=== PATIENT | female | born 1950 | race Caucasian/White ===

== ENCOUNTER → 2017-09-10 | Outpatient (CLI) | payer MEDICARE, OTHER | LOC: MC.RAD 08:33 | DX: Z12.31 Encounter for screening mammogram for malignant neoplasm of breast (principal) ==

== ENCOUNTER 2018-08-05 10:30 | Outpatient (RCR) | payer MEDICARE | END 2018-08-23 | disposition home or self-care (01) | LOC: MKS.ESL.PT | DX: M77.51 Other enthesopathy of right foot and ankle (principal) | CPT/HCPCS: G8978-GP; G8979-GP ==

== ENCOUNTER 2019-08-03 18:35 | Emergency (ER) | payer MEDICARE ==
[~2019-08-03] VITALS: Ht 175.3 cm; Wt 60.5 kg
[2019-08-03 18:36] VITALS: TEMP 97.5
[2019-08-03] MEDS ORDERED: NORCO 325 MG-51 TAB PO (20:14)
[2019-08-03] MEDS ORDERED: ZOFRAN ODT4 MG PO (20:23)
[2019-08-03 20:37] VITALS: BP 170/101; PULSE 76
== END 2019-08-03 20:56 | disposition home or self-care (01) ==
LOC: COL.ER 18:35
DX: S72.402A Unspecified fracture of lower end of left femur, initial encounter for closed fracture (principal); X50.1XXA Overexertion from prolonged static or awkward postures, initial encounter
CPT/HCPCS: J3010; L1846

== ENCOUNTER 2019-08-25 12:45 | Outpatient (RCR) | payer MEDICARE ==
[~2019-08-25 12:45] MED LIST: NORCO 325 MG-51 TAB PO; ZOFRAN ODT4 MG PO
[2019-09-03] MEDS ORDERED: AMOXICILLIN 8751 TAB PO (09:31)
[2019-09-03] MEDS ORDERED: PERCOCET 325 MG1 TA2 PO (09:31)
[2019-09-03] MEDS ORDERED: STOOL SOFTENER100 M2 PO (09:32)
[2019-09-03] MEDS ORDERED: MOTRIN 600600 MG/TAB PO (09:32)
== END 2019-11-14 | disposition home or self-care (01) ==
LOC: MKS.ESL.PT
DX: S83.105A Unspecified dislocation of left knee, initial encounter (principal)

== ENCOUNTER 2019-08-26 10:28 | Inpatient (IN) | payer MEDICARE ==
[~2019-08-26] VITALS: Ht 175.3 cm; Wt 60.5 kg
[2019-08-26] VITALS (8 sets, daily range): BP systolic 96–123; BP diastolic 59–70; PULSE 80–85
[2019-08-26 11:23] LABS: HEMATOCRIT 40.3 % (37.0-47.0); HEMOGLOBIN 13.1 g/dl (12.5-16.0); MEAN CELL VOLUME 93 fl (80.0-100.0); MEAN CORPUSCULAR HEMOGLOBIN 30 pg (27.0-31.0); MEAN CORPUSCULAR HGB CONC 33 g/dl (33.0-37.0); MEAN PLATELET VOLUME 10.6 fl (7.4-10.4); PLATELET COUNT 222 K/mm3 (130-400); RED BLOOD COUNT 4.35 M/mm3 (4.10-5.30); REDCELL DISTRIBUTION WIDTH-CV 13.1 % (11.5-14.5)
[2019-08-26 11:34] LABS: ALANINE AMINOTRANSFERASE 12 U/L (9-52); ALBUMIN 4.2 gm/dL (3.5-5.0); ALKALINE PHOSPHATASE 169 U/L (50-136); ANION GAP 13 mmol/L (7-16); AST,SGOT 31 U/L (15-37); BILIRUBIN,TOTAL 1.5 mg/dL (0.0-1.0); BLOOD UREA NITROGEN 22 mg/dL (7-17); CALCIUM 9.6 mg/dL (8.4-10.2); CARBON DIOXIDE 26 mmol/L (22-30); CHLORIDE 99 mmol/L (98-107); CREATININE, serum 0.66 (0.52-1.25); GLUCOSE 160 mg/dL (74-106); POTASSIUM 3.7 mmol/L (3.4-5.0); SODIUM 139 mmol/L (137-145); TOTAL PROTEIN 8.2 gm/dL (6.4-8.2)
[2019-08-26 11:43] LABS: LIPASE < 10 U/L (23-300)
[2019-08-26 11:45] LABS: BAND 4 % (0-10); LYMPHOCYTE 5 % (20.0-51.0); NEUTROPHILS 87 % (42.0-75.2)
[2019-08-26 11:46] LABS: PLATELET ESTIMATE NORMAL (NORMAL)
[2019-08-26 13:01] LABS: COLLECTION METHOD CLEAN CATCH
[2019-08-26 13:08] LABS: MUCOUS Present /lpf; PH 5 (5-8); SQUAMOUS EPITHELIAL 0-2 /hpf; URINE APPEARANCE Cloudy; URINE BACTERIA Rare /hpf; URINE BILIRUBIN Negative (NEGATIVE); URINE BLOOD 2+ (NEGATIVE); URINE COLOR Amber; URINE GLUCOSE Negative (NEGATIVE); URINE KETONE 1+ (NEGATIVE); URINE LEUKOCYTE ESTERASE 1+ (NEGATIVE); URINE NITRATE Negative (NEGATIVE); URINE PROTEIN(semi-quant) 2+ (NEGATIVE)
[2019-08-27 03:31] VITALS: BP 121/72; PULSE 80; TEMP 98
[2019-08-27 07:03] LABS: MEAN CELL VOLUME 93 fl (80.0-100.0); MEAN CORPUSCULAR HGB CONC 32 g/dl (33.0-37.0); MEAN PLATELET VOLUME 10.8 fl (7.4-10.4); PLATELET COUNT 187 K/mm3 (130-400); RED BLOOD COUNT 3.65 M/mm3 (4.10-5.30); REDCELL DISTRIBUTION WIDTH-CV 13.3 % (11.5-14.5)
[2019-08-27 07:09] LABS: MEAN CORPUSCULAR HEMOGLOBIN 30 pg (27.0-31.0)
[2019-08-27 07:13] LABS: ALBUMIN 2.8 gm/dL (3.5-5.0); BILIRUBIN,TOTAL 0.7 mg/dL (0.0-1.0); CALCIUM 8.7 mg/dL (8.4-10.2); CREATININE, serum 0.68 (0.52-1.25); MAGNESIUM 1.9 mg/dL (1.6-2.3); PHOSPHOROUS 3.4 mg/dL (2.5-4.5); POTASSIUM 3.8 mmol/L (3.4-5.0); TOTAL PROTEIN 5.9 gm/dL (6.4-8.2)
[2019-08-27 07:22] VITALS: BP 116/68; PULSE 79; TEMP 97.8
[2019-08-27 07:50] LABS: BAND 3 % (0-10); BURR CELLS 1+; LYMPHOCYTE 2 % (20.0-51.0); NEUTROPHILS 95 % (42.0-75.2); PLATELET ESTIMATE NORMAL (NORMAL)
[2019-08-27 12:47] VITALS: BP 117/75; PULSE 76; TEMP 98.2
[2019-08-27 16:27] VITALS: BP 126/67; PULSE 76; TEMP 97.6
[2019-08-27 19:50] VITALS: BP 125/69; PULSE 75; TEMP 98.4
[2019-08-27 23:41] VITALS: BP 123/70; PULSE 74; TEMP 97.5
[2019-08-28 03:30] VITALS: BP 130/74; PULSE 75; TEMP 97.7
[2019-08-28 06:54] LABS: BASO % 0.2 % (0.0-2.0); GRAN # 10.7 (1.4-6.5); GRAN % 84.3 % (42.2-75.2); HEMOGLOBIN 10.3 g/dl (12.5-16.0); LYMPH # 1.2 (1.2-3.4); LYMPH % 9.3 % (20.0-51.0); MEAN CELL VOLUME 95 fl (80.0-100.0); MEAN CORPUSCULAR HEMOGLOBIN 30 pg (27.0-31.0); MEAN CORPUSCULAR HGB CONC 32 g/dl (33.0-37.0); MEAN PLATELET VOLUME 10.7 fl (7.4-10.4); MONO # 0.7 (0.1-0.6); MONO % 5.5 % (1.7-9.3); PLATELET COUNT 185 K/mm3 (130-400); RED BLOOD COUNT 3.43 M/mm3 (4.10-5.30); REDCELL DISTRIBUTION WIDTH-CV 13.3 % (11.5-14.5)
[2019-08-28 06:59] LABS: HEMATOCRIT 32.6 % (37.0-47.0)
[2019-08-28 07:02] LABS: ALBUMIN 2.7 gm/dL (3.5-5.0); BILIRUBIN,TOTAL 0.4 mg/dL (0.0-1.0); CALCIUM 8.7 mg/dL (8.4-10.2); CREATININE, serum 0.66 (0.52-1.25); POTASSIUM 3.6 mmol/L (3.4-5.0)
[2019-08-28 07:35] VITALS: BP 128/73; PULSE 72; TEMP 98
[2019-08-28 11:58] VITALS: BP 133/74; PULSE 75; TEMP 98.4
[2019-08-28 16:20] VITALS: BP 136/67; PULSE 71; TEMP 98.5
[2019-08-28 19:56] VITALS: BP 133/67; PULSE 73; TEMP 98.8
[2019-08-28 23:31] VITALS: BP 132/66; PULSE 69; TEMP 98.9
[2019-08-29 04:06] VITALS: BP 131/70; PULSE 67; TEMP 98.3
[2019-08-29 06:16] LABS: BASO % 0.2 % (0.0-2.0); EOS # 0.1 (0.0-0.7); EOS % 0.7 % (0-4.0); GRAN # 7.3 (1.4-6.5); GRAN % 79.5 % (42.2-75.2); HEMOGLOBIN 10.7 g/dl (12.5-16.0); LYMPH % 11.4 % (20.0-51.0); MEAN CELL VOLUME 94 fl (80.0-100.0); MEAN CORPUSCULAR HEMOGLOBIN 30 pg (27.0-31.0); MEAN CORPUSCULAR HGB CONC 31 g/dl (33.0-37.0); MEAN PLATELET VOLUME 10.8 fl (7.4-10.4); MONO # 0.7 (0.1-0.6); MONO % 7.5 % (1.7-9.3); PLATELET COUNT 170 K/mm3 (130-400); RED BLOOD COUNT 3.62 M/mm3 (4.10-5.30); REDCELL DISTRIBUTION WIDTH-CV 13.1 % (11.5-14.5)
[2019-08-29 06:19] LABS: HEMATOCRIT 34.1 % (37.0-47.0)
[2019-08-29 06:26] LABS: ALBUMIN 2.8 gm/dL (3.5-5.0); BILIRUBIN,TOTAL 0.7 mg/dL (0.0-1.0); CALCIUM 8.2 mg/dL (8.4-10.2); CREATININE, serum 0.61 (0.52-1.25); POTASSIUM 3.3 mmol/L (3.4-5.0); TOTAL PROTEIN 5.9 gm/dL (6.4-8.2)
[2019-08-29 07:51] VITALS: BP 136/68; PULSE 66; TEMP 98.2
[2019-08-29 11:38] VITALS: BP 132/68; PULSE 69; TEMP 98
[2019-08-29 16:04] VITALS: BP 148/71; PULSE 76; TEMP 98.7
[2019-08-29 20:01] VITALS: BP 135/68; PULSE 72; TEMP 98.5
[2019-08-29 23:43] VITALS: BP 130/70; PULSE 97; TEMP 98.9
[2019-08-30 03:48] VITALS: BP 156/82; PULSE 75; TEMP 98.5
[2019-08-30 07:30] VITALS: BP 164/85; PULSE 79; TEMP 98.2
[2019-08-30 08:41] LABS: HEMOGLOBIN 11.2 g/dl (12.5-16.0); MEAN CELL VOLUME 94 fl (80.0-100.0); MEAN CORPUSCULAR HEMOGLOBIN 30 pg (27.0-31.0); MEAN CORPUSCULAR HGB CONC 33 g/dl (33.0-37.0); MEAN PLATELET VOLUME 10.3 fl (7.4-10.4); PLATELET COUNT 192 K/mm3 (130-400); RED BLOOD COUNT 3.69 M/mm3 (4.10-5.30); REDCELL DISTRIBUTION WIDTH-CV 12.9 % (11.5-14.5)
[2019-08-30 08:47] LABS: HEMATOCRIT 34.5 % (37.0-47.0)
[2019-08-30 08:51] LABS: CALCIUM 7.8 mg/dL (8.4-10.2); CREATININE, serum 0.48 (0.52-1.25); POTASSIUM 3.2 mmol/L (3.4-5.0)
[2019-08-30 09:15] LABS: BAND 2 % (0-10); EOSINOPHIL 2 % (0-4); LYMPHOCYTE 12 % (20.0-51.0); METAMYELOCYTE 1 % (0-0); NEUTROPHILS 74 % (42.0-75.2); PLATELET ESTIMATE NORMAL (NORMAL); POIKILOCYTOSIS 1+
[2019-08-30 11:10] VITALS: BP 166/82; PULSE 79; TEMP 99
[2019-08-30 16:10] VITALS: BP 149/82; PULSE 81; TEMP 98.9
[2019-08-30 19:16] VITALS: BP 139/86; PULSE 75; TEMP 98.9
[2019-08-31] VITALS (13 sets, daily range): BP systolic 132–165; BP diastolic 71–92; PULSE 74–88; TEMP 98.4–99.5
[2019-08-31 05:52] LABS: HEMATOCRIT 35.6 % (37.0-47.0); HEMOGLOBIN 11.4 g/dl (12.5-16.0); MEAN CELL VOLUME 92 fl (80.0-100.0); MEAN CORPUSCULAR HEMOGLOBIN 29 pg (27.0-31.0); MEAN CORPUSCULAR HGB CONC 32 g/dl (33.0-37.0); MEAN PLATELET VOLUME 10.3 fl (7.4-10.4); PLATELET COUNT 218 K/mm3 (130-400); RED BLOOD COUNT 3.89 M/mm3 (4.10-5.30); REDCELL DISTRIBUTION WIDTH-CV 12.9 % (11.5-14.5)
[2019-08-31 06:31] LABS: BAND 3 % (0-10); EOSINOPHIL 2 % (0-4); LYMPHOCYTE 12 % (20.0-51.0); NEUTROPHILS 80 % (42.0-75.2); PLATELET ESTIMATE NORMAL (NORMAL)
[2019-08-31 12:46] LABS: CALCIUM 7.9 mg/dL (8.4-10.2); CREATININE, serum 0.47 (0.52-1.25); POTASSIUM 3.3 mmol/L (3.4-5.0)
[2019-08-31 13:10] LABS: ALBUMIN 2.6 gm/dL (3.5-5.0); BILIRUBIN,TOTAL 0.8 mg/dL (0.0-1.0); MAGNESIUM 1.6 mg/dL (1.6-2.3); PHOSPHOROUS 3.1 mg/dL (2.5-4.5); TOTAL PROTEIN 5.7 gm/dL (6.4-8.2)
[2019-08-31 13:17] LABS: PRE ALBUMIN 5.5 mg/dL (17.6-36.0)
[2019-09-01 03:15] VITALS: BP 146/79; PULSE 80; TEMP 98.8
[2019-09-01 06:17] LABS: CALCIUM 7.9 mg/dL (8.4-10.2); CREATININE, serum 0.42 (0.52-1.25); MAGNESIUM 1.7 mg/dL (1.6-2.3); PHOSPHOROUS 2.4 mg/dL (2.5-4.5); POTASSIUM 3.3 mmol/L (3.4-5.0)
[2019-09-01 06:23] LABS: PRE ALBUMIN 6.3 mg/dL (17.6-36.0)
[2019-09-01 08:49] VITALS: BP 147/82; PULSE 81; TEMP 98.6
[2019-09-01 09:50] LABS: HEMOGLOBIN 11.8 g/dl (12.5-16.0); MEAN CELL VOLUME 91 fl (80.0-100.0); MEAN CORPUSCULAR HEMOGLOBIN 30 pg (27.0-31.0); MEAN CORPUSCULAR HGB CONC 33 g/dl (33.0-37.0); MEAN PLATELET VOLUME 10.6 fl (7.4-10.4); PLATELET COUNT 223 K/mm3 (130-400); RED BLOOD COUNT 3.96 M/mm3 (4.10-5.30); REDCELL DISTRIBUTION WIDTH-CV 12.9 % (11.5-14.5)
[2019-09-01 09:58] LABS: HEMATOCRIT 36.1 % (37.0-47.0)
[2019-09-01 10:38] LABS: EOSINOPHIL 5 % (0-4); LYMPHOCYTE 10 % (20.0-51.0); METAMYELOCYTE 1 % (0-0); NEUTROPHILS 79 % (42.0-75.2); PLATELET ESTIMATE NORMAL (NORMAL)
[2019-09-01 10:39] LABS: BURR CELLS 1+
[2019-09-01 11:58] VITALS: BP 141/78; PULSE 81; TEMP 98.8
[2019-09-01 15:33] VITALS: BP 152/84; PULSE 84; TEMP 98.2
[2019-09-01 20:25] VITALS: BP 134/77; PULSE 90; TEMP 98.1
[2019-09-02] VITALS (7 sets, daily range): BP systolic 126–151; BP diastolic 70–88; PULSE 88–99; TEMP 98.1–99.1
[2019-09-02 07:46] LABS: CALCIUM 8.1 mg/dL (8.4-10.2); CREATININE, serum 0.41 (0.52-1.25); MAGNESIUM 1.9 mg/dL (1.6-2.3); PHOSPHOROUS 3.3 mg/dL (2.5-4.5)
[2019-09-02 09:38] LABS: HEMATOCRIT 37.1 % (37.0-47.0); MEAN CELL VOLUME 93 fl (80.0-100.0); MEAN CORPUSCULAR HEMOGLOBIN 30 pg (27.0-31.0); MEAN CORPUSCULAR HGB CONC 32 g/dl (33.0-37.0); MEAN PLATELET VOLUME 10.6 fl (7.4-10.4); PLATELET COUNT 240 K/mm3 (130-400); REDCELL DISTRIBUTION WIDTH-CV 13.2 % (11.5-14.5)
[2019-09-02 10:07] LABS: BAND 1 % (0-10); EOSINOPHIL 10 % (0-4); LYMPHOCYTE 16 % (20.0-51.0); NEUTROPHILS 63 % (42.0-75.2); PLATELET ESTIMATE NORMAL (NORMAL)
[2019-09-03 02:53] VITALS: BP 140/77; PULSE 89; TEMP 98.3
[2019-09-03 07:18] LABS: CALCIUM 8.4 mg/dL (8.4-10.2); CREATININE, serum 0.42 (0.52-1.25); PHOSPHOROUS 3.8 mg/dL (2.5-4.5); POTASSIUM 3.9 mmol/L (3.4-5.0)
[2019-09-03 09:08] VITALS: BP 129/73; PULSE 89; TEMP 98.9
[2019-09-03] MEDS ORDERED: AMOXICILLIN 8751 TAB PO (09:31)
[2019-09-03] MEDS ORDERED: PERCOCET 325 MG1 TA2 PO (09:31)
[2019-09-03] MEDS ORDERED: MOTRIN 600600 MG/TAB PO (09:32)
[2019-09-03] MEDS ORDERED: STOOL SOFTENER100 M2 PO (09:32)
[2019-09-03 12:53] VITALS: BP 140/69; PULSE 93; TEMP 97.9
[2019-09-03 16:15] VITALS: BP 138/75; PULSE 95; TEMP 98.2
[2019-09-03 19:59] VITALS: BP 138/77; PULSE 93; TEMP 98.3
[2019-09-03 23:50] VITALS: BP 142/69; PULSE 94; TEMP 98.5
[2019-09-04 03:29] VITALS: BP 134/62; PULSE 93; TEMP 98.3
[2019-09-04 05:59] LABS: CALCIUM 8.7 mg/dL (8.4-10.2); CREATININE, serum 0.42 (0.52-1.25); PHOSPHOROUS 3.8 mg/dL (2.5-4.5); POTASSIUM 4.5 mmol/L (3.4-5.0)
[2019-09-04 08:30] VITALS: BP 126/66; PULSE 95; TEMP 98.9
[2019-09-04 12:06] VITALS: BP 141/79; PULSE 98; TEMP 98.3
[2019-09-04 16:29] VITALS: BP 141/76; PULSE 87; TEMP 97.8
[2019-09-04 19:23] VITALS: BP 127/68; PULSE 95; TEMP 98.9
[2019-09-05 00:19] VITALS: BP 131/66; PULSE 94; TEMP 98
[2019-09-05 04:34] VITALS: BP 131/71; PULSE 90; TEMP 98.1
[2019-09-05 07:58] VITALS: BP 124/65; PULSE 92; TEMP 98.3
[2019-09-05 11:51] VITALS: BP 140/68; PULSE 89; TEMP 98.1
== END 2019-09-05 12:15 | disposition home health service (06) | DRG 329 ==
LOC: COL.ER 10:28 → SURG 14:54
PROVIDERS: Emergency Medicine; ADMIT Surgery
PROC: 0DJD4ZZ Inspection of Lower Intestinal Tract, Percutaneous Endoscopic Approach (ICD-10-PCS; 2019-08-26)
PROC: 0DBN0ZZ Excision of Sigmoid Colon, Open Approach (ICD-10-PCS; principal; 2019-08-26 16:00)
PROC: 3E0436Z Introduction of Nutritional Substance into Central Vein, Percutaneous Approach (ICD-10-PCS; 2019-08-31)
PROC: 05HM33Z Insertion of Infusion Device into Right Internal Jugular Vein, Percutaneous Approach (ICD-10-PCS; 2019-08-31)
DX: K57.20 Diverticulitis of large intestine with perforation and abscess without bleeding (principal); K65.9 Peritonitis, unspecified; E44.0 Moderate protein-calorie malnutrition; Z68.1 Body mass index [BMI] 19.9 or less, adult; K59.00 Constipation, unspecified
CPT/HCPCS: A4217; A4314; A9284; J0330; J0610; J1100; J1170; J1650; J2270; J2405; J2543; J2704; J2795; J3010; J3411; J3475; J3480; J7030; J7120; J7131; Q9967

== ENCOUNTER → 2020-01-05 | Outpatient (CLI) | payer MEDICARE ==
[~2020-01-05] MED LIST changes: +AMOXICILLIN 8751 TAB PO; +COLACE 100100 MG/CAP PO; +MOTRIN 200200 MG/TAB PO; +MOTRIN 600600 MG/TAB PO; +NEURONTIN100 MG/CAP PO; +PERCOCET 325 MG1 TA2 PO; +STOOL SOFTENER100 M2 PO; +ULTRAM 50MG TAB50 MG PO
== END ==
LOC: COL.LAB 08:00
DX: Z20.828 Contact with and (suspected) exposure to other viral communicable diseases (principal)

== ENCOUNTER 2021-02-14 09:45 | Outpatient (RCR) | payer MEDICARE | END 2021-02-14 11:00 | disposition home or self-care (01) | LOC: WSPT 09:45 | DX: M77.51 Other enthesopathy of right foot and ankle (principal) ==

== ENCOUNTER → 2021-06-28 | Outpatient (CLI) | payer MEDICARE | LOC: MC.RAD 09:15 | DX: Z12.31 Encounter for screening mammogram for malignant neoplasm of breast (principal) ==

== ENCOUNTER → 2022-08-14 | Outpatient (CLI) | payer MEDICARE | LOC: MC.RAD 09:27 | DX: Z12.31 Encounter for screening mammogram for malignant neoplasm of breast (principal) ==

== ENCOUNTER → 2023-10-23 | Outpatient (CLI) | payer MEDICARE | LOC: MC.RAD 09:33 | DX: Z12.31 Encounter for screening mammogram for malignant neoplasm of breast (principal) ==

== ENCOUNTER 2023-12-29 17:10 | Emergency (ER) | payer MEDICARE ==
[~2023-12-29] VITALS: Ht 170.2 cm; Wt 55.5 kg
[2023-12-29 17:15] VITALS: TEMP 97.9
[2023-12-29] MEDS ORDERED: Ketorolac 30 MG/ML VIAL IM ONE (19:15)
[2023-12-29] MEDS ORDERED: Cyclobenzaprine 10 MG TAB PO ONE (19:15)
[2023-12-29] MEDS ORDERED: FLEXERIL 1010 MG/TAB PO (20:08)
[2023-12-29] MEDS ORDERED: MOBIC 7.5MG7.5 MG PO (20:08)
[2023-12-29 20:15] VITALS: BP 155/95; PULSE 80
== END 2023-12-29 20:16 | disposition home or self-care (01) ==
LOC: COL.ER 17:10
DX: M54.50 Low back pain, unspecified (principal); M54.6 Pain in thoracic spine
CPT/HCPCS: J1885

== ENCOUNTER 2024-02-24 12:54 | Outpatient (RCR) | payer MEDICARE ==
[~2024-02-24] VITALS: Ht 170.2 cm; Wt 53.7 kg
[~2024-02-24 12:54] MED LIST changes: +FLEXERIL 1010 MG/TAB PO; +MOBIC 7.5MG7.5 MG PO
[2024-02-24 13:15] VITALS: BP 129/79; PULSE 79; TEMP 97.8
[2024-02-24] MEDS ORDERED: Romosozumab-aqqg 210 MG/2.34 ML 2-Syringe KIT SQ ONE (13:15)
--- NOTE | 2024-02-24 14:00 | NUR ---
Pt tolerated evenity without issue. She remained in dept for monitoring after initial dose. She denies any concerns. She is escorted out to elevator.
== END 2024-02-24 14:05 | disposition home or self-care (01) ==
LOC: EUO 12:54
DX: M81.0 Age-related osteoporosis without current pathological fracture (principal)
CPT/HCPCS: J3111

== ENCOUNTER → 2024-03-22 | Outpatient (RCR) | payer MEDICARE | END | disposition home or self-care (01) | LOC: PT.GENESIS | DX: M54.50 Low back pain, unspecified (principal) ==

== ENCOUNTER 2024-04-20 12:42 | Outpatient (CLI) | payer MEDICARE ==
[~2024-04-20] VITALS: Ht 170.2 cm; Wt 52.2 kg
[2024-04-20] MEDS ORDERED: Romosozumab-aqqg 210 MG/2.34 ML 2-Syringe KIT SQ ONE (13:00)
[2024-04-20] MEDS ORDERED: ALEVE 220MG220 MG PO (13:23)
[2024-04-20 13:24] VITALS: BP 109/64; PULSE 81; TEMP 98.4
== END 2024-04-20 13:45 ==
LOC: EUO 12:42
DX: M81.0 Age-related osteoporosis without current pathological fracture (principal)
CPT/HCPCS: J3111